=== PATIENT | male | born 1990 | race Caucasian/White ===

== ENCOUNTER 2024-01-03 21:40 | Emergency (ER) | payer OTHER ==
[~2024-01-03] VITALS: Ht 182.9 cm; Wt 117.1 kg
[2024-01-03 21:42] VITALS: TEMP 97.5
[2024-01-03] MEDS: OXYMETAZOLINE 0.05% NASAL SPRAY (AFRIN) ONE (22:31)
[2024-01-03 23:32] LABS: HEMOGLOBIN 15.5 g/dl (13.5-17.5); MEAN CORPUSCULAR HGB CONC 33.7 g/dl (32.0-36.5); PLATELET COUNT, AUTOMATED 117 10^3/uL (150-450); RED BLOOD COUNT 5.17 10^6/uL (4.30-6.10); WHITE BLOOD COUNT 8.5 10^3/uL (4.0-10.0)
[2024-01-03 23:42] LABS: INR 1.14; PROTHROMBIN TIME 14.3 SECONDS (12.5-14.5)
[2024-01-03 23:51] LABS: BLOOD UREA NITROGEN 13 MG/DL (9-23); CALCIUM LEVEL 9.1 MG/DL (8.5-10.1); CARBON DIOXIDE LEVEL 25 MMOL/L (20-31); CHLORIDE LEVEL 104 MMOL/L (98-107); CREATININE FOR GFR 0.68 MG/DL (0.70-1.30); GLOMERULAR FILTRATION RATE > 60.0 (>60); GLUCOSE, FASTING 89 MG/DL (60-100); POTASSIUM SERUM 3.6 MMOL/L (3.5-5.1); SODIUM LEVEL 139 MMOL/L (136-145)
[2024-01-03] MEDS ORDERED: LISI10TA22 PO (23:51)
[2024-01-04 00:02] VITALS: BP 155/98
[2024-01-04 01:20] VITALS: BP 162/94; O2SAT 100
[2024-01-04] MEDS ORDERED: AMOX500C PO (03:08)
[2024-01-05] MEDS ORDERED: MAGN500T2 PO (12:08)
[2024-01-05] MEDS ORDERED: METO1TAB32 PO (12:08)
[2024-01-05] MEDS ORDERED: LISI10TA22 PO (12:08)
== END 2024-01-04 01:22 | disposition home or self-care (01) ==
LOC: M ED 21:40
DX: R04.0 Epistaxis (principal); I10 Essential (primary) hypertension; F17.200 Nicotine dependence, unspecified, uncomplicated; Z79.2 Long term (current) use of antibiotics; Z79.811 Long term (current) use of aromatase inhibitors

== ENCOUNTER 2024-01-04 02:01 | Emergency (ER) | payer OTHER ==
[~2024-01-04] VITALS: Ht 182.9 cm; Wt 115.7 kg
[~2024-01-04 02:01] MED LIST: LISI10TA22 PO
[2024-01-04 02:04] VITALS: TEMP 97.7; O2SAT 94
[2024-01-04 02:05] VITALS: BP 158/88
[2024-01-04] MEDS ORDERED: AMOX500C PO (03:08)
[2024-01-05] MEDS ORDERED: MAGN500T2 PO (12:08)
[2024-01-05] MEDS ORDERED: METO1TAB32 PO (12:08)
[2024-01-05] MEDS ORDERED: LISI10TA22 PO (12:08)
== END 2024-01-04 03:40 | disposition home or self-care (01) ==
LOC: M ED 02:01
DX: R04.0 Epistaxis (principal); I10 Essential (primary) hypertension; Z79.811 Long term (current) use of aromatase inhibitors; Z79.899 Other long term (current) drug therapy

== ENCOUNTER 2024-01-04 03:55 | Observation (INO) | payer OTHER ==
[~2024-01-04] VITALS: Ht 182.9 cm; Wt 115.1 kg
[2024-01-04] VITALS (8 sets, daily range): BP systolic 132–165; BP diastolic 70–116; TEMP 96.8–97.9; O2SAT 96–98
[~2024-01-04 03:55] MED LIST changes: +AMOX500C PO
[2024-01-04] MEDS ORDERED: fentaNYL 100 MCG/2 ML INJECTION As Ordered ONE (05:34)
[2024-01-04] MEDS ORDERED: ONDANSETRON 4MG 2ML VIAL As Ordered ONE (05:35)
[2024-01-04] MEDS ORDERED: ROCURONIUM BROMIDE 50MG/5ML VIAL As Ordered ONE (05:35)
[2024-01-04] MEDS ORDERED: propofoL 200 MG/20 ML VIAL As Ordered ONE (05:35)
[2024-01-04] MEDS ORDERED: MIDAZOLAM INJ 2MG/2ML VIAL As Ordered ONE (05:35)
[2024-01-04] MEDS ORDERED: SUCCINYLCHOLINE 100MG/5ML SYRINGE As Ordered ONE (05:35)
[2024-01-04] MEDS ORDERED: LIDOCAINE 2% 100MG/5ML SDV (FOR ANES.) As Ordered ONE (05:35)
[2024-01-04] MEDS ORDERED: METOPROLOL 5 MG/5 ML VIAL As Ordered ONE (06:22)
[2024-01-04] MEDS ORDERED: PHENYLephrine 500MCG 5ML (100MCG/ML) SYRINGE As Ordered ONE (06:34)
[2024-01-04] MEDS: EPINEPHrine INJ 1 MG/ML 1ML AMP As Ordered ONE (06:37)
[2024-01-04] MEDS: METHYLENE BLUE 0.5% (5MG/ML) 10 ML AMP (PROVAYBLUE) As Ordered ONE (06:38)
[2024-01-04] MEDS: OXYMETAZOLINE 0.05% NASAL SPRAY (AFRIN) As Ordered ONE (06:52)
[2024-01-04] MEDS: COCAINE 4% 4ML NASAL SOLUTION BTL As Ordered ONE (06:52)
[2024-01-04] MEDS ORDERED: SUGAMMADEX SODIUM 500 MG/5 ML VIAL (BRIDION) As Ordered ONE (06:53)
[2024-01-04] MEDS ORDERED: ACETAMINOPHEN 1000MG/100ML IV BAG As Ordered ONE (07:27)
[2024-01-04] MEDS ORDERED: ePHEDrine SULFATE 25 MG/5 ML(5MG/ML) SYRINGE As Ordered ONE (07:43)
[2024-01-04] MEDS: LIDOCAINE W/EPINEPHRINE 1% 20ML VIAL As Ordered ONE (08:30)
[2024-01-04] MEDS ORDERED: oxyCODONE 5MG TAB PO PRN (09:05)
[2024-01-04] MEDS ORDERED: ONDANSETRON 4MG 2ML VIAL IV PRN (09:05)
[2024-01-04] MEDS ORDERED: HYDROMORPHONE HCL 0.5 MG/ 0.5 ML SYRINGE IV PRN (09:05)
[2024-01-04] MEDS ORDERED: fentaNYL 100 MCG/2 ML INJECTION IV PRN (09:05)
[2024-01-04] MEDS ORDERED: LR 1,000 ML IV SCH (09:05)
[2024-01-04] MEDS ORDERED: LORazepam 2 MG TAB PO PRN (09:35)
[2024-01-04] MEDS: MULTIVITAMINS/MINERALS THERAP 1 TAB PO SCH (12:05)
[2024-01-04] MEDS: THIAMINE 100 MG TAB PO SCH (12:06)
[2024-01-04] MEDS: FOLIC ACID 1MG TAB PO SCH (12:06)
[2024-01-04] MEDS: NS 1,000 ML IV SCH (12:07)
[2024-01-04 13:27] LABS: BASO % 0.2 % (0.0-1.0); HEMATOCRIT 43.1 % (42.0-52.0); HEMOGLOBIN 14.4 g/dl (13.5-17.5); LYMPH # 0.8 10^3/uL (1.5-5.0); LYMPH % 7.9 % (24.0-44.0); MEAN CORPUSCULAR HEMOGLOBIN 29.8 pg (27.0-33.0); MEAN CORPUSCULAR HGB CONC 33.4 g/dl (32.0-36.5); MEAN CORPUSCULAR VOLUME 89.2 fl (80.0-96.0); MONO # 0.5 10^3/uL (0.0-0.8); MONO % 5.4 % (2.0-8.0); NEUTROPHILS # 8.3 10^3/uL (1.5-8.5); NEUTROPHILS % 86.1 % (36.0-66.0); PLATELET COUNT, AUTOMATED 111 10^3/uL (150-450); RED BLOOD COUNT 4.83 10^6/uL (4.30-6.10); WHITE BLOOD COUNT 9.7 10^3/uL (4.0-10.0)
[2024-01-04 13:39] LABS: INR 1.14; PARTIAL THROMBOPLASTIN TIME 29.2 SECONDS (24.8-34.2); PROTHROMBIN TIME 14.2 SECONDS (12.5-14.5)
[2024-01-04] MEDS: **hydrALAZINE HCL** 25 MG TAB PO SCH ×2 (13:42→17:28)
[2024-01-04 14:02] LABS: ALBUMIN 3.4 G/DL (3.2-5.2); ALKALINE PHOSPHATASE 252 U/L (46-116); ALT/SGPT 97 U/L (7.0-40); AST/SGOT 112 U/L (<34); BILIRUBIN,TOTAL 1.1 MG/DL (0.3-1.2); BLOOD UREA NITROGEN 24 MG/DL (9-23); CARBON DIOXIDE LEVEL 27 MMOL/L (20-31); CHLORIDE LEVEL 102 MMOL/L (98-107); CREATININE FOR GFR 0.91 MG/DL (0.70-1.30); GLOMERULAR FILTRATION RATE > 60.0 (>60); GLUCOSE, FASTING 138 MG/DL (60-100); MAGNESIUM LEVEL 1.3 MG/DL (1.8-2.4); POTASSIUM SERUM 4.1 MMOL/L (3.5-5.1); SODIUM LEVEL 136 MMOL/L (136-145); TOTAL PROTEIN 7.2 G/DL (5.7-8.2)
[2024-01-04] MEDS ORDERED: HOME MED LIST COMPLETE! XX SCH (15:10)
[2024-01-04] MEDS: ACETAMINOPHEN 325 MG TAB PO PRN (22:25)
[2024-01-05 03:58] VITALS: BP 142/98; TEMP 97.5; O2SAT 97
[2024-01-05 06:00] VITALS: BP 138/72
[2024-01-05 06:09] LABS: BASO % 0.3 % (0.0-1.0); EOS # 0.1 10^3/uL (0.0-0.5); EOS % 0.5 % (0.0-3.0); HEMATOCRIT 42.4 % (42.0-52.0); HEMOGLOBIN 14.2 g/dl (13.5-17.5); LYMPH # 1.9 10^3/uL (1.5-5.0); MEAN CORPUSCULAR HEMOGLOBIN 29.6 pg (27.0-33.0); MEAN CORPUSCULAR HGB CONC 33.5 g/dl (32.0-36.5); MEAN CORPUSCULAR VOLUME 88.3 fl (80.0-96.0); MONO # 1.1 10^3/uL (0.0-0.8); MONO % 10.1 % (2.0-8.0); NEUTROPHILS # 7.4 10^3/uL (1.5-8.5); NEUTROPHILS % 70.6 % (36.0-66.0); PLATELET COUNT, AUTOMATED 109 10^3/uL (150-450); WHITE BLOOD COUNT 10.5 10^3/uL (4.0-10.0)
[2024-01-05 06:29] LABS: ALBUMIN 3.3 G/DL (3.2-5.2); ALKALINE PHOSPHATASE 233 U/L (46-116); ALT/SGPT 84 U/L (7.0-40); AST/SGOT 111 U/L (<34); BILIRUBIN,TOTAL 1.4 MG/DL (0.3-1.2); BLOOD UREA NITROGEN 16 MG/DL (9-23); CALCIUM LEVEL 8.8 MG/DL (8.5-10.1); CARBON DIOXIDE LEVEL 27 MMOL/L (20-31); CHLORIDE LEVEL 104 MMOL/L (98-107); CREATININE FOR GFR 0.79 MG/DL (0.70-1.30); GLOMERULAR FILTRATION RATE > 60.0 (>60); GLUCOSE, FASTING 95 MG/DL (60-100); MAGNESIUM LEVEL 1.3 MG/DL (1.8-2.4); POTASSIUM SERUM 3.7 MMOL/L (3.5-5.1); SODIUM LEVEL 138 MMOL/L (136-145); TOTAL PROTEIN 6.6 G/DL (5.7-8.2)
[2024-01-05 08:00] VITALS: BP 140/94; TEMP 97.9; O2SAT 98
[2024-01-05 08:53] VITALS: BP 139/93
[2024-01-05] MEDS ORDERED: MAG SULF 1GM/100ML (MAG RUN) 1 GM in IV 1 EA IV ONE (09:10)
[2024-01-05 09:47] VITALS: BP 139/93
[2024-01-05] MEDS: MAG SULF 1GM/100ML (MAG RUN) 1 GM in IV 1 EA IV SCH (09:47)
[2024-01-05] MEDS: METOPROLOL SUCC *XL* 25MG TAB (TopROL *XL*) PO SCH (09:47)
[2024-01-05 12:00] VITALS: BP 135/88; TEMP 97.7; O2SAT 98
[2024-01-05] MEDS ORDERED: MAGN500T2 PO (12:08)
[2024-01-05] MEDS ORDERED: LISI10TA22 PO (12:08)
[2024-01-05] MEDS ORDERED: METO1TAB32 PO (12:08)
== END 2024-01-05 14:34 | disposition home or self-care (01) ==
LOC: M ED 03:55 → M ED INP 03:56 → INTOOBSV 03:56 → M MSPAV 11:55
PROVIDERS: ADMIT Otolaryngology; ATTEND Hospitalist
DX: R04.0 Epistaxis (principal); J34.2 Deviated nasal septum; I10 Essential (primary) hypertension; R00.0 Tachycardia, unspecified; F10.10 Alcohol abuse, uncomplicated; F17.218 Nicotine dependence, cigarettes, with other nicotine-induced disorders; Z79.899 Other long term (current) drug therapy
CPT/HCPCS: 30520; 30905; 31241; 31254; 31256; 36415; 80048; 80053; 82330; 82947; 83735; 84132; 84295; 85014; 85025; 85027; 85610; 85730; 86140; 96360; 96361; 99283; 99284; A6024; C9143; J0131; J0171; J0330; J1100; J2250; J2371; J2405; J3010; J3475; Q9968

== ENCOUNTER → 2024-03-30 | Outpatient (REF) | payer OTHER ==
[~2024-03-30] MED LIST changes: +MAGN500T2 PO; +METO1TAB32 PO
[2024-03-30 11:41] LABS: ALKALINE PHOSPHATASE 131 U/L (40-129); ALT/SGPT 45 U/L (7.0-40); AST/SGOT 44 U/L (<34); BILIRUBIN,TOTAL 0.5 MG/DL (0.3-1.2); BLOOD UREA NITROGEN 14 MG/DL (9-23); CALCIUM LEVEL 9.5 MG/DL (8.5-10.1); CARBON DIOXIDE LEVEL 27 MMOL/L (20-31); CHLORIDE LEVEL 105 MMOL/L (98-107); CHOLESTEROL LEVEL 210 MG/DL (<200); CHOLESTEROL RISK RATIO 4.62 (<5); CREATININE FOR GFR 0.85 MG/DL (0.70-1.30); GLOMERULAR FILTRATION RATE > 60.0 (>60); GLUCOSE, FASTING 89 MG/DL (60-100); HDL CHOLESTEROL 45.4 MG/DL (>40); LDL CHOLESTEROL 143.6 MG/DL (<100); NON-HDL-C 164.6 MG/DL; POTASSIUM SERUM 4.3 MMOL/L (3.5-5.1); SODIUM LEVEL 141 MMOL/L (136-145); TOTAL PROTEIN 7.5 G/DL (5.7-8.2); TRIGLYCERIDES LEVEL 105 MG/DL (<150)
== END ==
LOC: M LABWUC 09:35
PROVIDERS: ATTEND Nurse Practitioner Family
DX: I10 Essential (primary) hypertension (principal)